=== PATIENT | female | born 1990 | race Hispanic/Latino ===

== ENCOUNTER 2020-03-08 00:44 | Observation (INO) | payer BC, MEDICAID ==
[~2020-03-08] VITALS: Ht 157.5 cm; Wt 66.7 kg
[2020-03-08] MEDS ORDERED: LACTATED RINGERS 1000ML IV PRN (01:15)
[2020-03-08 01:42] VITALS: BP 118/75
[2020-03-08 01:45] LABS: APPEARANCE,URINE Clear (CLEAR); BILIRUBIN,URINE Negative (NEGATIVE); COLOR,URINE Yellow (YELLOW); GLUCOSE, URINE (UA) Negative (NEGATIVE); KETONES,URINE Trace mg/dL (NEGATIVE); LEUKOCYTE ESTERASE ,URINE Negative (NEGATIVE); NITRATE,URINE Negative (NEGATIVE); OCCULT BLOOD,URINE Negative (NEGATIVE); PROTEIN,URINE Negative (NEGATIVE)
[2020-03-08] MEDS ORDERED: TERBUTALINE SULFATE VIAL 1MG/ML SQ ONE (02:09)
[2020-03-08] MEDS ORDERED: [UNRECOGNIZED DRUG - REMARK] PO (02:53)
[2020-03-08] MEDS ORDERED: PREN1TAB80 PO (02:53)
[2020-03-08] MEDS ORDERED: TERBUTALINE SULFATE VIAL 1MG/ML SQ PRN (03:00)
[2020-03-08] MEDS ORDERED: LACTATED RINGERS 1000ML 1,000 ML IV SCH (03:00)
== END 2020-03-08 04:45 | disposition home or self-care (01) ==
LOC: EDH 00:44 → LDH 00:45
PROVIDERS: ADMIT Obstetrics & Gynecology; ATTEND Obstetrics & Gynecology
DX: O62.9 Abnormality of forces of labor, unspecified (principal); R10.30 Lower abdominal pain, unspecified; R10.32 Left lower quadrant pain; Z3A.32 32 weeks gestation of pregnancy
CPT/HCPCS: 81003; 96360; 99283; G0378 ×4; J3105; J7120; 96372